=== PATIENT | male | born 1960 | race Caucasian/White ===

== ENCOUNTER → 2017-07-25 | Outpatient (REF) ==
[2017-07-25 19:00] LABS: PSA-TOTAL 3.09 ng/mL (0-4)
[2017-07-25 19:10] LABS: C-REACTIVE PROTEIN 0.8 mg/dL (0.0-0.9)
[2017-07-25 19:38] LABS: THYROID STIMULATING HORMONE 1.43 uIU/mL (0.465-4.680)
== END ==
LOC: ZLAB.WCH 17:56
PROVIDERS: Internal Medicine
DX: Z01.89 Encounter for other specified special examinations (principal)
CPT/HCPCS: G0103